=== PATIENT | female | born 1990 | race Two or more races ===

== ENCOUNTER 2020-07-07 04:02 | Inpatient (IN) | payer SELFPAY ==
[~2020-07-07] VITALS: Ht 157.5 cm; Wt 88.3 kg
[2020-07-07] MEDS ORDERED: HALOPERIDOL 5MG/ML VIAL (J1630 PER 1) IM STA (04:23)
[2020-07-07] MEDS ORDERED: LORazepam 2 MG/ML VIAL IM STA (04:23)
[2020-07-07] MEDS ORDERED: LORazepam 2 MG/ML VIAL IM ONE (06:15)
[2020-07-07] MEDS ORDERED: HALOPERIDOL 5MG/ML VIAL (J1630 PER 1) IM ONE (06:15)
[2020-07-07 07:08] LABS: HEMATOCRIT 41.3 % (36.0-47.0); HEMOGLOBIN 13.5 g/dl (12.0-15.5); MEAN CORPUSCULAR HEMOGLOBIN 29.8 pg (27.0-33.0); MEAN CORPUSCULAR HGB CONC 32.7 g/dl (32.0-36.5); MEAN CORPUSCULAR VOLUME 91.2 fl (80.0-96.0); PLATELET COUNT, AUTOMATED 207 10^3/uL (150-450); RED BLOOD COUNT 4.53 10^6/uL (4.00-5.40); WHITE BLOOD COUNT 9.2 10^3/uL (4.0-10.0)
[2020-07-07 07:45] LABS: ACETAMINOPHEN LEVEL < 2.0 UG/ML (10.0-30.0); ALBUMIN 3.4 GM/DL (3.2-5.2); ALT/SGPT 29 U/L (12-78); BILIRUBIN,DIRECT 0.2 MG/DL (0.0-0.2); BILIRUBIN,TOTAL 0.4 MG/DL (0.2-1.0); BLOOD UREA NITROGEN 9 MG/DL (7-18); CALCIUM LEVEL 8.5 MG/DL (8.5-10.1); CARBON DIOXIDE LEVEL 23 MEQ/L (21-32); CHLORIDE LEVEL 106 MEQ/L (98-107); CREATININE FOR GFR 0.72 MG/DL (0.55-1.30); ETHYL ALCOHOL (ETHANOL) < 0.003 % (0.000-0.010); GLOMERULAR FILTRATION RATE > 60.0 (>60); GLUCOSE, FASTING 124 MG/DL (70-100); POTASSIUM SERUM 3.3 MEQ/L (3.5-5.1); SALICYLATE LEVEL 2.6 MG/DL (5.0-30.0); SODIUM LEVEL 138 MEQ/L (136-145); TOTAL PROTEIN 6.5 GM/DL (6.4-8.2)
[2020-07-07 11:47] LABS: HCG, SERUM QUALITATIVE NEGATIVE (NEGATIVE)
[2020-07-07 11:57] LABS: AMPHETAMINES LEVEL URINE NEGATIVE (NEGATIVE); BARBITURATES URINE NEGATIVE (NEGATIVE); BENZODIAZEPINES URINE NEGATIVE (NEGATIVE); CANNABINOIDS URINE POSITIVE (NEGATIVE); COCAINE METABOLITE URINE NEGATIVE (NEGATIVE); METHADONE URINE NEGATIVE (NEGATIVE); OPIATES URINE NEGATIVE (NEGATIVE); PHENCYCLIDINE URINE NEGATIVE (NEGATIVE)
[2020-07-07] MEDS ORDERED: LORazepam 2 MG TAB PO ONE (12:00)
[2020-07-07] MEDS ORDERED: NICOTINE 21MG/24HR 1 EA TRANSDERMAL TD ONE (15:30)
[2020-07-07] MEDS ORDERED: ACETAMINOPHEN 500 MG TAB PO ONE (15:30)
[2020-07-07] MEDS ORDERED: LAMI25CH PO (19:35)
[2020-07-07] MEDS ORDERED: MOM 30ML SUSPENSION UDC PO PRN (20:00)
[2020-07-07] MEDS ORDERED: MAALOX 30 ML SUSP *UDC PO PRN (20:00)
[2020-07-07] MEDS: traZODone 50 MG TAB PO PRN (20:56)
[2020-07-07] MEDS ORDERED: LAMO25TA4 PO ×2 (21:03)
[2020-07-07] MEDS ORDERED: D31000TA2 PO (21:03)
[2020-07-07] MEDS ORDERED: TRAZ-186 PO (21:06)
[2020-07-07] MEDS ORDERED: TRAZ-252 PO (21:06)
[2020-07-07] MEDS ORDERED: ZIPR40CA11 PO (21:06)
[2020-07-07] MEDS ORDERED: PATIENT COMMENT (21:08)
[2020-07-07] MEDS ORDERED: IBUP1TAB7 PO (21:08)
[2020-07-07] MEDS: ACETAMINOPHEN TAB 650MG DOSE (2X325MG) PO PRN (21:11)
[2020-07-08 08:13] VITALS: BP 144/78
[2020-07-08] MEDS: lamoTRIgine 25 MG TAB PO SCH ×2 (09:00→20:28)
[2020-07-08] MEDS: NICOTINE 21MG/24HR 1 EA TRANSDERMAL TD SCH (09:48)
[2020-07-08] MEDS: ACETAMINOPHEN TAB 650MG DOSE (2X325MG) PO PRN ×2 (09:49→19:47)
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
[2020-07-08 17:41] VITALS: BP 141/82
[2020-07-08] MEDS: OLANZapine 5 MG TAB PO SCH (20:28)
[2020-07-09] MEDS: ACETAMINOPHEN TAB 650MG DOSE (2X325MG) PO PRN ×2 (06:21→15:53)
[2020-07-09 06:38] VITALS: BP 142/66
[2020-07-09] MEDS: NICOTINE 21MG/24HR 1 EA TRANSDERMAL TD SCH (08:07)
[2020-07-09] MEDS: lamoTRIgine 25 MG TAB PO SCH ×2 (09:00→21:56)
[2020-07-09] MEDS: OLANZapine 5 MG TAB PO SCH ×2 (09:00→21:56)
[2020-07-09 10:31] VITALS: BP 142/66
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
--- NOTE | 2020-07-09 12:40 | MHIPNPDOC ---
[facility] Progress Note Progress Note DATE OF SERVICE: 07/09/20 HISTORY: Patient is attempted to be met with today however she is quite distorted and screams that her bed is talking to her. She refuses any medication and demands to be released. She then subsequently terminates in interview. Afterward met with her, and was meeting with the patient she had continued to yell outside of her room, she screamed and yelled, she then yelled that she had fallen, no sound was hurt as it was several rooms away and looked out to see her sitting in no acute distress on her floor next to her doorway, she still a ppeared to be screaming incoherently. VITAL SIGNS: See below. NEW TEST RESULTS: N/a. CURRENT MEDICATIONS: See below. MENTAL STATUS EXAMINATION: General: Poor hygiene Speech: Hyperverbal Thought processes: Tangential Thought content: Paranoid Abstract reasoning, and computation: Impaired Description of associations: Impaired Description of abnormal or psychotic thoughts: Paranoid thoughts Judgment: Poor Insight: Poor Orientation: [Alert and orientated 3] Recent and remote memory: [Intact] Attention span and concentration: Attention span impaired secondary thought process Fund of knowledge: Not able to determine Mood: "Let me out" Affect: Dysphoric DIAGNOSES: 1. Unspecified psychotic disorder. ASSESSMENT: The patient appears to be quite dysphoric and plagued by hallucinations MANAGEMENT PLAN: Zyprexa 5 mg twice a day, one dose of Haldol 10 mg given to help with acute dysphoria and increasing agitation, patient reports that she had fallen but had not hit her head, patient engaging in unusual behavior where she subsequently reports that she can't walk but appears to be acting quite bizarrely. Hospitalist recommends use of a walker which I don't oppose this time and she is not overtly agitated. Will likely need to move patient's room closer nursing station so that she can be monitored closely TIME SPENT: 15 minutes. Vital Signs Vital Signs Date Time Temp Pulse Resp B/P (MAP) Pulse Ox O2 Delivery O2 Flow Rate FiO2 07/09/20 10:31 98.3 109 18 142/66 98 Room Air Laboratory Data 24H Labs Laboratory Tests 2 07/09/20 12:26: Current Medications Current Medications Medications (Trade) Dose Ordered Sig/Jodi Route PRN Reason Start Time Stop Time Status Last Admin Dose Admin Acetaminophen (Tylenol Tab) 650 mg Q6HP PRN PO HEADACHE or DISCOMFORT 07/07/20 20:00 07/09/20 06:21 Al Hydrox/Mg Hydrox/Simethicone (Mylanta) 30 ml Q4HP PRN PO HEARTBURN/INDIGESTION 07/07/20 20:00 07/08/20 17:50 Haloperidol (Haldol) 5 mg STAT STAT IM 07/07/20 04:23 07/07/20 04:25 DC 07/07/20 04:36 Home Med (Med Rec Complete!) ASDIRECTED XX 07/07/20 21:15 07/07/20 21:13 DC Lamotrigine (LaMICtal) 25 mg BID PO 07/08/20 09:00 07/08/20 20:28 Lorazepam (Ativan) 2 mg STAT STAT IM 07/07/20 04:23 07/07/20 04:25 DC 07/07/20 04:36 Magnesium Hydroxide (Milk Of Magnesia) 30 ml DAILYPRN PRN PO CONSTIPATION 07/07/20 20:00 Nicotine (Nicoderm Cq 21mg) 1 patch DAILY TD 07/08/20 09:00 07/09/20 08:07 Olanzapine (ZyPREXA ZYDIS) 5 mg Q4HP PRN PO ANXIETY/AGITATION 07/08/20 07:00 Olanzapine (ZyPREXA) 5 mg BID PO 07/08/20 21:00 07/08/20 20:28 Trazodone HCl (Desyrel) 50 mg QHSP PRN PO INSOMNIA 07/07/20 20:00 07/07/20 20:56 Allergies Coded Allergies: Penicillins (Verified Allergy, Intermediate, 07/07/20) FLORENCE FIORE DO Jul 09, 2020 12:40
[2020-07-09 13:12] LABS: CHOLESTEROL RISK RATIO 3.24 (<5); THYROID STIMULATING HORMONE 0.646 uIU/ML (0.358-3.740); THYROXINE (T4) 11.3 UG/DL (4.5-12.0)
[2020-07-09 13:40] VITALS: BP 128/96
[2020-07-09 15:51] VITALS: BP 149/83
[2020-07-09 16:18] VITALS: BP 131/74
[2020-07-09] MEDS: traZODone 50 MG TAB PO PRN (21:56)
[2020-07-10 05:59] VITALS: BP 132/78
[2020-07-10] MEDS: OLANZapine ORAL DISINTEGRATING TAB 5MG PO PRN ×4 (06:02→22:34)
[2020-07-10] MEDS: ACETAMINOPHEN TAB 650MG DOSE (2X325MG) PO PRN ×3 (06:03→18:12)
[2020-07-10] MEDS: OLANZapine 5 MG TAB PO SCH ×2 (08:17→20:31)
[2020-07-10] MEDS: lamoTRIgine 25 MG TAB PO SCH ×2 (08:17→20:31)
[2020-07-10] MEDS: NICOTINE 21MG/24HR 1 EA TRANSDERMAL TD SCH (08:18)
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
[2020-07-10 16:08] VITALS: BP 138/77
[2020-07-10] MEDS: traZODone 50 MG TAB PO PRN (20:31)
[2020-07-11] MEDS: ACETAMINOPHEN TAB 650MG DOSE (2X325MG) PO PRN ×4 (00:37→20:59)
[2020-07-11] MEDS: OLANZapine ORAL DISINTEGRATING TAB 5MG PO PRN ×3 (02:35→23:22)
[2020-07-11 06:25] VITALS: BP 146/80
--- NOTE | 2020-07-11 07:24 | ECGEPIP ---
[facility] Test Date: 2020-07-09 Pat Name: JANA FERRER Department: Room: [place] [address] Gender: Female Utilization Management Nurse: JANNETTE : 1990 Requested By: FLORENCE ALMANZA Order Number: [id number] Reading MD: Digna Fine Measurements Intervals Justice Rate: 87 P: 19 AR: 132 QRS: 57 QRSD: 107 T: 46 QT: 339 QTc: 410 Interpretive Statements SINUS RHYTHM POSSIBLE LEFT VENTRICULAR HYPERTROPHY NO PRIOR Electronically Signed on 07-11-2020 7:24:04 EST by Digna Fine
[2020-07-11] MEDS: OLANZapine 5 MG TAB PO SCH ×2 (08:13→20:20)
[2020-07-11] MEDS: lamoTRIgine 25 MG TAB PO SCH ×2 (08:13→20:20)
[2020-07-11] MEDS: NICOTINE 21MG/24HR 1 EA TRANSDERMAL TD SCH (08:14)
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
[2020-07-11 18:00] VITALS: BP 140/75
[2020-07-11] MEDS: traZODone 50 MG TAB PO PRN (20:20)
[2020-07-12] MEDS: ACETAMINOPHEN TAB 650MG DOSE (2X325MG) PO PRN ×2 (02:59→09:35)
[2020-07-12 06:30] VITALS: BP 139/66
[2020-07-12] MEDS: lamoTRIgine 25 MG TAB PO SCH (08:10)
[2020-07-12] MEDS: NICOTINE 21MG/24HR 1 EA TRANSDERMAL TD SCH (08:10)
[2020-07-12] MEDS: OLANZapine 5 MG TAB PO SCH (08:10)
[2020-07-12] MEDS ORDERED: OLAN5TAB PO (09:07)
[2020-07-12] MEDS ORDERED: TRAZ-186 PO (09:07)
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
== END 2020-07-12 11:25 | disposition home or self-care (01) | DRG 753 ==
LOC: M ED 04:02 → M ED INP 20:00 → M PSY 07-08 09:00
PROVIDERS: ADMIT Psychiatry & Neurology Addiction Medicine; ATTEND Psychiatry & Neurology Psychiatry
DX: F31.81 Bipolar II disorder (principal); F43.10 Post-traumatic stress disorder, unspecified; Z79.899 Other long term (current) drug therapy; Z88.0 Allergy status to penicillin; E78.5 Hyperlipidemia, unspecified; G43.909 Migraine, unspecified, not intractable, without status migrainosus; E05.90 Thyrotoxicosis, unspecified without thyrotoxic crisis or storm